=== PATIENT | female | born 1975 | race Caucasian/White ===

== ENCOUNTER 2023-04-25 11:39 | Emergency (ER) | payer OTHER, SELFPAY ==
[2023-04-25 11:42] VITALS: BP 134/87
--- NOTE | 2023-04-25 12:20 | EDRN ---
Dr. Schreiber in to see pt.
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
--- NOTE | 2023-04-25 12:51 | EDRN ---
Pt states she will not allow herself to have any IV attempt w/out drinking water.
[2023-04-25 12:55] VITALS: BMI 29.9
[2023-04-25 13:17] LABS: COVID-19 Antigen Negative (Negative)
[2023-04-25 13:20] VITALS: BP 130/89
[2023-04-25 13:24] LABS: % Basophils 0.4 % (0-2); % Eosinophils 0.4 % (0-6); % Immature Granulocytes 0.5 % (0-0.5); % Lymphocytes 16.9 % (20.5-51.1); % Monocytes 14.6 % (1.7-9.3); % Neutrophils 67.2 % (42.2-75.2); Absolute Immature Granulocytes 0.1 10^3/uL (0-0.05); Absolute Lymphocytes 1.7 10^3/uL (1.2-3.4); Absolute Monocytes 1.4 10^3/uL (0.1-0.6); Absolute Neutrophils 6.6 10^3/uL (1.4-6.5); Hematocrit 44.8 % (37.0-47.0); Hemoglobin 15.3 g/dL (12.0-16.0); Mean Corp Hgb Conc. 34.2 g/dL (33.0-37.0); Mean Corpuscular Hgb 28.3 pg (27.0-31.0); Nucleated Red Blood Cells % 0 %; Platelet Count 253 10^3/uL (130-400); Red Cell Dist. Width 14.1 % (11.5-14.5); White Blood Cell Count 9.9 10^3/uL (4.8-10.8)
[2023-04-25] MEDS: NSS 1000 IV (13:25)
[2023-04-25 13:45] LABS: Lactic Acid 1.2 mmol/L (0.7-2.0)
[2023-04-25 13:48] LABS: ALT (SGPT) 23 U/L (0-35); AST (SGOT) 30 U/L (14-36); Albumin 4.3 g/dl (3.5-5.0); Alkaline Phosphatase 141 U/L (38-126); Blood Urea Nitrogen 27 mg/dl (7-17); Calcium 9.4 mg/dl (8.4-10.2); Carbon Dioxide 19 mmol/L (22-30); Chloride 101 mmol/L (98-107); Estimated Creatinine Clearance 66 ml/min; Glucose 259 mg/dl (70-99); Potassium 4.3 mmol/L (3.5-5.1); Sodium 133 mmol/L (135-145); Total Bilirubin 0.6 mg/dl (0.2-1.3); Total Protein 7.9 g/dl (6.3-8.2); eGFR > 60.00
[2023-04-25 14:47] VITALS: BP 105/75
[2023-04-25 15:00] VITALS: BP 103/74
[2023-04-25] MEDS: TYLENOL 650 MG PO (15:24)
[2023-04-25] MEDS: DECADRON 10 MG IV (15:24)
[2023-04-25] MEDS: DUONEB 3 ML INH (15:24)
[2023-04-25 16:00] VITALS: BP 105/67
== END 2023-04-25 16:26 | disposition home or self-care (01) ==
LOC: EMR 11:39
PROVIDERS: EMERGENCY PHYSICIAN Emergency Medicine; FAMILY PHYSICIAN Family Medicine
DX: J11.1 Influenza due to unidentified influenza virus with other respiratory manifestations (principal)
CPT/HCPCS: 99285; 94640; 96374; 96361 ×2; 71046; 80053; 83605; 85025; 87040; 87502; 87811; 93005

== ENCOUNTER 2023-05-23 06:19 | Emergency (ER) | payer OTHER, SELFPAY ==
[2023-05-23 06:20] VITALS: BP 142/107
--- NOTE | 2023-05-23 07:18 | ED.GENMED ---
History of Present Illness
General
Chief Complaint: Back Pain
Source: patient and records
Exam Limitations: none
Time Seen by Provider: 05/23/23 06:34
Nursing documentation reviewed up to this point in time: agreed with
Travel History
Have you had any contact with someone who has COVID-19?: No
Do you have any symptoms of coronavirus? Fever > 100 degrees, chills, cough, shortness of breath, sore throat, loss of taste or smell, muscle aches, or headache?: No
History of Present Illness
History of Present Illness:
Patient is a 47-year-old diabetic female presents to the emergency department with worsening low back pain. Patient states this started couple months ago after she had to move into a friend's house and has been sleeping on the couch. Patient
denies any direct injury to the area. Patient states it is from her mid back to her low back. Patient went to see her physician this week and he did not want to put her on prednisone because of the history of diabetes. Patient was on tramadol and
took 3 doses and vomited. Patient denies fever or chills. Patient denies any symptoms. Patient denies any abdominal pain, diarrhea or constipation. Patient denies any bowel or bladder incontinence. Patient has mild tingling in her toes and
fingers. Patient denies any neck pain. Patient has pain when she walks. Patient has had sciatica in the past.
Past History
Past History
ED Past Medical History: Asthma, Cancer (Leukemia, status post bone marrow transplant), COPD, GERD, NIDDM, Psychiatric (Depression), Other (Fibromyalgia, migraines, chronic back pain) and Other (Left bundle branch block)
ED Past Surgical History: Cholecystectomy and Gynecological (Hysterectomy, oophorectomy)
Social History
Tobacco: Non-smoker
Alcohol: None
Drug: None
Personal:
Living: with family
Employment: Not employed
Review of Systems
Review of Systems
All Other Systems: ROS reviewed and negative except as documented in HPI and ROS
Constitutional: Denies fever or chills
EENT: Reports no symptoms
Respiratory: Reports no symptoms
Cardiac: Reports no symptoms
ABD/GI: Reports nausea and vomiting; Denies abdominal pain, diarrhea or constipated
: Denies flank pain or incontinence
Musculoskeletal: Reports back pain
Skin: Reports no symptoms
Neurological: Denies weakness
Hematologic/Lymphatic: Reports no symptoms
Phy Exam
Physical Exam
Physical Exam:
Physical Exam
General: mild distress, alert and appropriate, well nourished, well hydrated
HENT: Normocephalic, supple with no lymphadenopathy, no thyromegaly
Eyes: Clear sclera, conjuctiva without injection
Heart: Regular rhythm and rate. No S3, S4. No murmur.
Lungs: No respiratory distress, no stridor, lung sounds clear and equal bilaterally
Abdomen: Soft, nontender, no organomegaly, no CVA tenderness, BS good
Neuro: Alert and oriented x 3, CN II - XII intact, no motor focality, no cerebellar dysfunction, sensory intact, DTRs 1/4 and equal bilaterally
Skin: no rash
Psychiatric: well kept. interactive and cooperative
Extremities: No edema, cyanosis, tenderness
Musculoskeletal: No cervical tenderness. Mild diffuse mid thoracic to lower lumbar tenderness with paravertebral spasm but full range of motion, no crepitus or deformity
Scores
Heart Failure Risk
Heart Failure Risk Score: Not Applicable
Heart Score for Chest Pain Patients
STEMI patient?: Not applicable
Withdrawal Assessment of Alcohol
Withdrawal Assessment Completed?: Not applicable
Course
Orders/Labs/Results
Orders:
Orders
05/23/23 07:16
Diazepam [Valium] 5 mg PO NOW STA
Ketorolac [Toradol] 15 mg IM NOW STA
Lumbar Spine Complete, 4 View [CR Lumbar Spine Comp Min 4 Vw*] Urgent
Comment:
Reason For Exam: back pain hx of cancer
Vital Signs
Initial and Last Documented VS:
Initial Vital Signs
Temp Pulse Resp BP Pulse Ox
97.5 F 114 16 142/107 96
05/23/23 06:20 05/23/23 06:20 05/23/23 06:20 05/23/23 06:20 05/23/23 06:20
Last Documented Vital Signs
Temp Pulse Resp BP Pulse Ox
97.5 F 114 16 142/107 96
05/23/23 06:20 05/23/23 06:20 05/23/23 06:20 05/23/23 06:20 05/23/23 06:20
*Radiology
Radiology exam reviewed: preliminary read by ED provider (X-ray unremarkable)
*Pulse Oximetry
Patient hypoxic: no
*EKG
Interpreted by ED Provider?: NA
*Wood Pole Treater Interpretation
Rate: Wood Pole Treater- N/A
*Critical Care Note
Total Time (30-74mins, 75-104mins- exclusive of procedures): Not Applicable
Update Note
Update Note:
Patient is pushing for steroids. Patient needs muscle relaxation and better body mechanics. X-ray unremarkable. Will give a short course of steroids as patient does keep track of her blood sugars.
ED Attending Note
-
Portions of this chart may have been created with voice recognition software.� Occasional wrong word or��sound alike� substitutions may have occurred due to the inherent limitations of voice recognition software.
Discharge Plan
Departure
Patient Disposition: Home (Routine Discharge)
Date of Disposition: 05/23/23
Time of Disposition: 08:21
Patient with high blood pressure during this ER visit?: Yes
Condition: Fair
Covid-19: Not Applicable
Discharge Problem:
Acute lumbosacral myofascial strain
Instructions: Low Back Pain (DC), BLOOD PRESSURE
Prescriptions:
New
diazepam 5 mg tablet
5 mg PO TID PRN (Reason: muscle spasm) Qty: 14 0RF
prednisone 10 mg tablet
10 mg PO BID Qty: 10 0RF
No Action
verapamil 120 MG tablet extended release
120 mg PO DAILY
amitriptyline 50 MG tablet
50 mg PO HS
estradiol 1 MG tablet
1 mg PO BID
metformin 1,000 MG tablet
1,000 mg PO BID
albuterol sulfate [Ventolin HFA] 90 MCG/PUFF HFA aerosol inhaler
1 puff inhalation Q4HPRN PRN (Reason: sob)
lisinopril 2.5 MG tablet
2.5 mg PO DAILY
levothyroxine 75 MCG tablet
75 mcg PO DAILY
bupropion HCl 300 MG tablet extended release 24 hr
300 mg PO DAILY
sitagliptin phosphate [Januvia] 100 MG tablet
100 mg PO DAILY
canagliflozin [Invokana] 100 MG tablet
100 mg PO QPM
Patient Comments:
pt states taking 300 mg
Glipizide
20 mg PO BID
ibuprofen 600 MG tablet
600 mg PO Q6 Qty: 20 0RF
prednisone 10 mg Tablet
See Rx Instructions .ROUTE .COMPLEX Qty: 30 0RF
Rx Instructions:
Take By Mouth:
40 mg daily x3 days, 30 mg daily x3 days,
20 mg daily x3 days, 10 mg daily x3 days.
diazepam [Valium] 5 mg tablet
5 mg PO BID PRN (Reason: muscle spasm) Qty: 7 0RF
albuterol sulfate [Proventil HFA] 90 mcg/actuation HFA aerosol inhaler
2 puff inhalation Q6H PRN (Reason: shortness of breath or wheezing) Qty: 8.5 0RF
Referrals:
Philippe Salinas MD [Family Provider] - Follow up in 5-7 days
Activity Restrictions/Additional Instructions:
Continue present medications and therapy. Make sure to check your sugars and adjust your medications accordingly.
Interventions
Interventions:
*Risk Screen - Suicide Last Done: 05/23/23 06:20
*General Assessment Last Done: 05/23/23 06:20
*Neglect/Abuse Screening Last Done: 05/23/23 06:20
*ED COVID-19 Vaccine History Last Done: 05/23/23 07:32
Discharge Date and Time
Print Language: POLISH
[2023-05-23] MEDS: TORADOL 15 MG IM (07:23)
[2023-05-23] MEDS: VALIUM 5 MG PO (07:24)
[2023-05-23 09:05] VITALS: BP 135/93
== END 2023-05-23 09:10 | disposition home or self-care (01) ==
LOC: EMR 06:19
PROVIDERS: EMERGENCY PHYSICIAN Emergency Medicine; FAMILY PHYSICIAN Family Medicine
DX: S39.012A Strain of muscle, fascia and tendon of lower back, initial encounter (principal); X58.XXXA Exposure to other specified factors, initial encounter; I10 Essential (primary) hypertension
CPT/HCPCS: 99284; 96372; 72110

== ENCOUNTER → 2023-06-24 10:43 | Outpatient (REF) | payer OTHER, SELFPAY | LOC: HWRAD 10:43 | PROVIDERS: ATTENDING PHYSICIAN Oral & Maxillofacial Surgery; FAMILY PHYSICIAN Family Medicine | DX: K08.20 Unspecified atrophy of edentulous alveolar ridge (principal) | CPT/HCPCS: 71046 ==

== ENCOUNTER 2023-09-14 16:10 | Outpatient (RCR) | payer OTHER, SELFPAY | END 2023-09-14 23:59 | disposition home or self-care (01) | LOC: RPT 16:10 | PROVIDERS: ATTENDING PHYSICIAN Family Medicine | DX: M54.16 Radiculopathy, lumbar region (principal); M79.671 Pain in right foot; M79.672 Pain in left foot; Z73.6 Limitation of activities due to disability; M79.641 Pain in right hand; M79.642 Pain in left hand | CPT/HCPCS: 97010; 97110; 97112; 97162; 97166; 97530; 97535 ==

== ENCOUNTER → 2023-11-23 10:08 | Outpatient (REF) | payer OTHER, SELFPAY | LOC: WDC 10:08 | DX: N63.10 Unspecified lump in the right breast, unspecified quadrant (principal); N63.20 Unspecified lump in the left breast, unspecified quadrant; N63.12 Unspecified lump in the right breast, upper inner quadrant; N63.22 Unspecified lump in the left breast, upper inner quadrant | CPT/HCPCS: 76642; 77062; 77066 ==

== ENCOUNTER → 2024-07-06 08:00 | Outpatient (REF) | payer OTHER, SELFPAY | LOC: HWRCS 08:00 | PROVIDERS: ATTENDING PHYSICIAN Internal Medicine Cardiovascular Disease; FAMILY PHYSICIAN Family Medicine | DX: R06.02 Shortness of breath (principal) | CPT/HCPCS: 93306 ==

== ENCOUNTER → 2024-11-04 12:21 | Outpatient (REF) | payer OTHER, SELFPAY | LOC: HWWDC 12:21 | PROVIDERS: ATTENDING PHYSICIAN Family Medicine | DX: Z12.31 Encounter for screening mammogram for malignant neoplasm of breast (principal) | CPT/HCPCS: 77063; 77067 ==